=== PATIENT | female | born 1960 | race African-American/Black ===

== ENCOUNTER 2018-01-21 17:35 | Inpatient (IN) | payer OTHER, MEDICAID ==
[~2018-01-21] VITALS: Ht 165.1 cm; Wt 72.6 kg
[~2018-01-21 17:35] MED LIST: GABA-534 PO; LISI-603 PO; METF500T6 PO; OXYC30TA2 PO; PANT40SU PO
[2018-01-21] MEDS ORDERED: ACETAMINOPHEN 325 MG TABLET PO PRN (18:00)
[2018-01-21] MEDS ORDERED: TEMAZEPAM 7.5 MG CAPSULE PO PRN (18:00)
[2018-01-21] MEDS ORDERED: clonazePAM 0.5 MG TABLET PO PRN (18:00)
[2018-01-21] MEDS ORDERED: MAGNESIUM HYDROXIDE 30 ML UDC PO PRN (18:00)
[2018-01-21] MEDS ORDERED: MAG HYDROX/AL HYDROX/SIMETH 30 ML UDC PO PRN (18:00)
--- NOTE | 2018-01-21 20:00 | NUR ---
Received patient in room asleep denies any pain or discomfort at this time patient got admitted early this shift 1830 patient got admitted for gravely disable, psychosis,nos, schizophrenia, skin assessment is done skin is clear no bruises or open skin noted, patient is alert oriented x 3 vital sign stable, respiratory unlabored, breathing even afebrile no behavior problem noted at this time will continues to monitor the patient for safety and fall every 15 mins.
[2018-01-21 21:01] VITALS: BP 125/60
[2018-01-22 07:17] LABS: ALBUMIN 2.9 g/dL (3.4-5.0); BILIRUBIN,TOTAL 0.2 mg/dL (0.2-1.0); CALCIUM, SERUM 9.1 mg/dL (8.5-10.1); CREATININE 0.6 mg/dL (0.6-1.3); POTASSIUM 3.9 mmol/L (3.5-5.1); TOTAL PROTEIN, SERUM 6.2 g/dL (6.4-8.2)
[2018-01-22 08:00] VITALS: BP 120/60
[2018-01-22] MEDS: PANTOPRAZOLE 40 MG/PACK PACK PO SCH (08:03)
[2018-01-22] MEDS: GABAPENTIN 300 MG CAPSULE PO SCH ×3 (08:04→16:31)
[2018-01-22] MEDS: METFORMIN 500 MG TABLET PO SCH (08:07)
[2018-01-22] MEDS ORDERED: oxyCODONE IR immediate release 5 MG PO SCH (09:00)
[2018-01-22] MEDS ORDERED: LISINOPRIL (10MG) 10 MG TABLET PO SCH ×2 (09:00)
--- NOTE | 2018-01-22 14:43 | NUR ---
Initial Discharge Plan: Pt currently resides at a residential called the [facility] [place] located at [address] [place] [address] ([phone]). Per pt, she would like to return to the residential. SW will work with the pt and the MD regarding appropriate discharge plans. SW will form a safe and proper discharge.
--- NOTE | 2018-01-22 14:46 | NUR ---
KRYSTIAN called the [facility] ([phone]) and was redirected to the housekeeper manager, Andre Camp ([phone]).
--- NOTE | 2018-01-22 14:47 | NUR ---
KRYSTIAN called Andre Camp ([phone]) from [facility] and left a message on his voicemail.
--- NOTE | 2018-01-22 15:06 | NUR ---
GPS RN NOTE: NOTIFIED DR SANDERSON NOTIFIED OF PT CONSENT FORM FAX TO PHARMACY NO ORDER IN THE [employer] , NEW T.O. ORDER FROM DR SANDERSON ZYPREXA 5 MG PO BID. ORDER PLACED AND CARED OUT.
[2018-01-22 16:00] VITALS: BP 112/65
[2018-01-22] MEDS: OLANZAPINE 5 MG TABLET PO SCH (16:31)
[2018-01-22 20:12] VITALS: BP 122/64
[2018-01-23 08:00] VITALS: BP 118/67
[2018-01-23] MEDS: GABAPENTIN 300 MG CAPSULE PO SCH ×3 (08:37→17:08)
[2018-01-23] MEDS: PANTOPRAZOLE 40 MG/PACK PACK PO SCH (08:37)
[2018-01-23] MEDS: OLANZAPINE 5 MG TABLET PO SCH ×2 (08:38→17:08)
[2018-01-23] MEDS: METFORMIN 500 MG TABLET PO SCH (08:41)
[2018-01-23 17:04] VITALS: BP 121/68
[2018-01-23 20:38] VITALS: BP 103/59
[2018-01-23 23:16] VITALS: BP 106/66
[2018-01-24 08:00] VITALS: BP 115/72
[2018-01-24] MEDS: GABAPENTIN 300 MG CAPSULE PO SCH ×3 (08:10→16:17)
[2018-01-24] MEDS: OLANZAPINE 5 MG TABLET PO SCH ×2 (08:10→16:17)
[2018-01-24] MEDS: PANTOPRAZOLE 40 MG/PACK PACK PO SCH (08:10)
[2018-01-24] MEDS: METFORMIN 500 MG TABLET PO SCH (08:10)
--- NOTE | 2018-01-24 09:27 | NUR ---
KRYSTIAN called Andre Camp ([phone]) from [facility] and confirmed that the pt can return to the intermediate and that she has a bed there.
--- NOTE | 2018-01-24 12:08 | NUR ---
SW spoke to Patricio ([phone]) at the [facility] and informed him that the SW would call back when there is a discharge date for the pt.
--- NOTE | 2018-01-24 14:53 | NUR ---
KRYSTIAN spoke to Alessandra, the pt's case reviewer from [facility] ([phone]), and discussed her current progress. KRYSTIAN told the case reviewer that she will call him back when there is a discharge date.
[2018-01-24 16:00] VITALS: BP 105/78
[2018-01-24 20:00] VITALS: BP 106/69
--- NOTE | 2018-01-24 22:00 | NUR ---
GPS RN NOTE: PATIENT HAS BEEN IN BED SLELEPING INTERMITTENTLY WITHOUT COMPLAINT AND IN NO APPARENT DISTRESS. PATIENT EASILY AROUSABLE TO NAME, ORIENTED X 3, QUIET AND WITHDRAWN. DENIES SI, HI, HALLUCINATIONS. SIDE RAILS UP X 2, WILL CONTINUE TO MONITOR Q 15 FOR SAFETY AND COMFORT.
[2018-01-25 08:00] VITALS: BP 119/82
[2018-01-25] MEDS: GABAPENTIN 300 MG CAPSULE PO SCH ×2 (09:18→13:10)
[2018-01-25] MEDS: METFORMIN 500 MG TABLET PO SCH (09:18)
[2018-01-25] MEDS: PANTOPRAZOLE 40 MG/PACK PACK PO SCH (09:18)
[2018-01-25] MEDS: OLANZAPINE 5 MG TABLET PO SCH (09:18)
--- NOTE | 2018-01-25 11:14 | NUR ---
KRYSTIAN called Alessandra Ballard, the pt's case finisher from [facility] ([phone]), and stated on his voicemail that she needs the pt's authorization number.
--- NOTE | 2018-01-25 11:48 | NUR ---
KRYSTIAN called Alessandra Ballard, the pt's case resolution specialist from [facility] ([phone]), and received the tracking number for the pt because there is no authorization number yet. The tracking number is [id number].
--- NOTE | 2018-01-25 13:06 | NUR ---
KRYSTIAN called Andre Conrado ([phone]) from [facility] and asked if she could return to the [facility] today. He stated that she could.
--- NOTE | 2018-01-25 14:34 | NUR ---
PT. WITH PC HEARING REPRESENTED BY HEARING REFEREE, ADVOCATE AND HOSPITAL STAFF. THE PATIENT, AFTER TALKING WITH THE ADVOCATE, HAS DECIDED TO: BE PRESENT AT THE CERTIFICATION REVIEW HEARING. AFTER CONSIDERING ALL THE EVIDENCE PRESENTED, THE HEARING REFEREE FINDS THAT: THERE IS NOT PROBABLE CAUSE TO BELIEVE THAT THE PERSON, A RESULT OF A MENTAL DISORDER IS A DANGER TO SELF, A DANGER TO OTHERS OR GRAVELY DISABLED. THE PATIENT MUST BE RELEASED OR REMAIN AT THE FACILITY ON A VOLUNTARY BASIS.
--- NOTE | 2018-01-25 14:48 | NUR ---
DR. MATT MADE AWARE OF THE RESULT OF THE PC HEARING AND TOLD PT. WANTED TO BE DISCHARGED. PSYCHIATRIST ORDERED TO DISCHARGE PT. TO [facility]. Addendum: 01/25/18 at 1451 by MARIA ESTHER JUSTICE RN AND TO FOLLOW UP WITH PSYCH AND MEDICAL DOCTORS.
--- NOTE | 2018-01-25 15:19 | NUR ---
PT. SAID SHE CAN'T THE PSYCHIATRIST FOR THE PRESCRIPTIONS, SAID SHE STILL HAVE PRESCRIPTIONS. DR. MATT MADE AWARE AND SAID DISCHARGE HER. Addendum: 01/25/18 at 1524 by MARIA ESTHER JUSTICE RN CAN'T WAIT THE PSYCHIATRIST FOR THE PRESCRIPTIONS.
--- NOTE | 2018-01-25 15:21 | NUR ---
GPS/RN PT DECLINED THE PRESCRIPTIONS FROM PSYCHIATRIST AND FROM MEDICAL DOCTOR WELL. PT STATES: " I DO HAVE ALL MEDS NEEDED AT HOME AND WILL NOT USE THE SCRIPT FROM THE HOSPITAL" PT IS PLANNING TO SEE PSYCHIATRIST AND PCP FROM OUTSIDE. INTERMEDIATE SET UP FOR HER BY SW. [facility] PROVIDED FOR PUBLIC TRANSPORTATION. NO SI OR HI REPORTED AT THE TIME OF D/C. REFUSED TO LET NURSE TO TAKE PICTURES ON D/C. Addendum: 01/25/18 at 1531 by DELFINA PERAZA RN CLOTHING AND SHOES PROVIDED ON D/C PT DID NOT HAVE ANY ON ADMISSION
--- NOTE | 2018-01-25 15:55 | NUR ---
Discharge Note: Pt was discharged to [facility] located at [address] [place] [address] ([phone]). Pts case planner was called, Andre Camp ([phone]), and was notified of this discharge today and he stated that a bed had been held for her and it is still ready for her. Pt agreed to take the bus and stated that she knew the route but the SW printed out a map of the bus route for safety measures. Pt was provided with enough to transport herself there which was $7. She was also given shoes upon discharge. Pt was also provided homeless fci and services referrals that are listed below. Upon discharge, pt denied any hallucinations and also denied both suicidal and homicidal ideation. Pts mood was enthusiastic and content and her affect was normal. Pt has an appointment with [facility] on December 30 at 8AM for a psychiatrist. [address] [place] [address] ([phone]). Her case number is [id number]. Pt will be under the care of unemployment specialist, Dr. Felicita York, located at [address] [place] [address]; ([phone]). Homeless Care Home Referrals [facility] [address] [place] [address] [facility] [address] [place] [address] [employer] [address] [address] [place] [address] [facility] [address] [place] [address]
--- NOTE | 2018-01-25 16:00 | NUR ---
GPS/RN ACCOMPANIED TO THE HOSPITAL LOBBY. NO ACUTE DISTRESS. PACKAGED DRINKS PROVIDED DUE TO EXCESSIVE HEAT. EXIT CARE INSTRUCTIONS PROVIDED AND UNDERSTOOD.
== END 2018-01-25 16:00 | disposition home or self-care (01) | DRG 885 ==
LOC: GPS 17:35
PROVIDERS: ADMIT Nurse Practitioner Acute Care; ATTEND Psychiatry & Neurology Psychiatry
DX: F25.9 Schizoaffective disorder, unspecified (principal); F01.50 Vascular dementia, unspecified severity, without behavioral disturbance, psychotic disturbance, mood disturbance, and anxiety; F29 Unspecified psychosis not due to a substance or known physiological condition; I10 Essential (primary) hypertension; E11.9 Type 2 diabetes mellitus without complications; D63.8 Anemia in other chronic diseases classified elsewhere; E88.09 Other disorders of plasma-protein metabolism, not elsewhere classified; Z88.2 Allergy status to sulfonamides; Z79.84 Long term (current) use of oral hypoglycemic drugs
CPT/HCPCS: 36415; 80053-TC; 80061-TC; 87081-TC